=== PATIENT | female | born 1960 | race Caucasian/White ===

== ENCOUNTER 2017-10-16 07:39 | Day surgery (SDC) | payer BC ==
[~2017-10-16] VITALS: Ht 157.5 cm; Wt 58.5 kg
[~2017-10-16 07:39] MED LIST: CEFAZOLIN SOD 1 GM/ ISO 50 ML PREMIX IV ONE
[2017-10-16] MEDS ORDERED: LR 1,000 ML IV SCH (12:07)
[2017-10-16] MEDS ORDERED: MORPHINE 4 MG/ML INJ. SYRINGE IVP PRN ×3 (12:15)
[2017-10-16] MEDS ORDERED: METOCLOPRAMIDE HCL 10 MG/2 ML VIAL IVP PRN (12:15)
[2017-10-16] MEDS ORDERED: BUPIVACAINE /PF 0.25% 30 ML VIAL INJ ONE (13:15)
[2017-10-16] MEDS ORDERED: SODIUM BICARBONATE 4% (NEUT) 5 ML VIAL ONE (13:15)
[2017-10-16] MEDS ORDERED: ROCURONIUM BROMIDE 10 MG/ML (ZEMURON) ONE (13:15)
[2017-10-16] MEDS ORDERED: fentaNYL CITRATE/PF 100 MCG/2 ML AMP ONE (13:15)
[2017-10-16] MEDS ORDERED: FUROSEMIDE 20 MG/2 ML VIAL ONE (13:15)
[2017-10-16] MEDS ORDERED: ROPIVACAINE 0.2% (NAROPIN) PF SOLUTION 100 ML BOTTLE ONE (13:15)
[2017-10-16] MEDS ORDERED: ONDANSETRON HCL 4 MG/2 ML VIAL ONE (13:15)
[2017-10-16] MEDS ORDERED: BUPIVACAINE /EPINEPHRINE/PF 0.5% 30 ML VIAL INJ ONE (13:15)
[2017-10-16] MEDS ORDERED: BUPIVACAINE /PF 0.5% 30 ML VIAL ONE (13:15)
[2017-10-16] MEDS ORDERED: SEVOFLURANE 15 MIN GAS INH ONE (13:15)
[2017-10-16] MEDS ORDERED: PROPOFOL 200MG/ 20ML VIAL (DIPRIVAN) IV ONE (13:15)
[2017-10-16] MEDS ORDERED: MIDAZOLAM HCL 5 MG/ML VIAL (VERSED) IV ONE (13:15)
[2017-10-16] MEDS ORDERED: DEXTROSE 50% JECT 50 ML DISP.SYRIN ONE (13:15)
[2017-10-16] MEDS ORDERED: KETOROLAC TROMETHAMINE 30 MG VIAL ONE (13:15)
[2017-10-16] MEDS ORDERED: LR 1,000 ML IV.SOLN IV ONE (13:15)
[2017-10-16] MEDS ORDERED: LIDOCAINE 2%, 20 ML MDV ONE (13:15)
[2017-10-16] MEDS ORDERED: fentaNYL CITRATE 250 MCG/5 ML AMP ONE (13:15)
[2017-10-16] MEDS ORDERED: MORPHINE 4 MG/ML INJ. SYRINGE ONE (13:39)
[2017-10-16] MEDS ORDERED: METOCLOPRAMIDE HCL 10 MG/2 ML VIAL ONE (13:39)
[2017-10-16] MEDS ORDERED: KETOROLAC TROMETHAMINE 30 MG VIAL IM ONE (15:00)
[2017-10-16] MEDS ORDERED: OXYCODONE/ACETAMINOPHEN 5-325 TABLET ONE (15:02)
[2017-10-16] MEDS ORDERED: ONDANSETRON HCL 4 MG/2 ML VIAL IVP PRN (15:30)
[2017-10-16] MEDS ORDERED: HYDROcodone/ACETAMIN 5-325 MG TAB (NORCO/ VICODIN) PO PRN (15:30)
[2017-10-16] MEDS ORDERED: OXYCODONE/ACETAMINOPHEN 5-325 TABLET PO PRN ×2 (15:30)
[2017-10-16 16:57] VITALS: BP_SYST 148
== END 2017-10-16 16:15 | disposition home or self-care (01) ==
LOC: SDS 07:39 → SMU 07:39 → SDS 16:15
PROVIDERS: ATTEND Specialist
DX: D25.2 Subserosal leiomyoma of uterus (principal); I10 Essential (primary) hypertension; Z79.899 Other long term (current) drug therapy; Z98.890 Other specified postprocedural states; M19.90 Unspecified osteoarthritis, unspecified site
CPT/HCPCS: 58552; 88307; C1727; J0690; J1885; J1940; J2001; J2250; J2270; J2405; J2704; J2765; J2795; J3010 ×2; J3490 ×2; J7120; E0190